=== PATIENT | male | born 1960 | race Caucasian/White ===

== ENCOUNTER 2016-09-22 20:44 | Emergency (ER) | payer OTHER ==
[~2016-09-22 20:44] MED LIST: Sodium Chloride 0.9% 1,000 ML BAG ONE; Sodium Chloride 0.9% 100 ML BAG ONE
[2016-09-22 22:20] LABS: ALT (SGPT) 19 U/L (0-55); AST (SGOT) 16 U/L (5-34); Albumin 3.9 g/dL (3.5-5.0); Alkaline Phosphatase 46 U/L (40-150); Anion Gap 14 mmol/L (10-20); BUN (Urea Nitrogen) 23 mg/dL (8.4-25.7); Bilirubin, Total 0.7 mg/dL (0.2-1.2); Calc. Creatinine Clearance 0 mL/min (70-130); Calcium 9.3 mg/dL (7.8-10.44); Carbon Dioxide 22 mmol/L (22-29); Chloride 98 mmol/L (98-107); Estimated GFR-MDRD 81; Globulin 2.5 g/dL (2.4-3.5); Glucose 110 mg/dL (70-105); Potassium 4.3 mmol/L (3.5-5.1); Protein, Total 6.4 g/dL (6.0-8.3); Sodium 130 mmol/L (136-145)
[2016-09-22 22:21] LABS: %Eosinophils 2.1 % (0.0-10.0); %Lymphocytes 19.9 % (21.0-51.0); %Monocytes 9.3 % (0.0-10.0); %Neutrophils 67.8 % (42.0-75.0); Hemoglobin 15.4 g/dL (14.0-18.0); Mean Corpuscular Hemoglobin 33.1 pg (27.0-31.0); Mean Corpuscular Volume 97.4 fL (80.0-94.0); Mean Platelet Volume 7.7 fL (7.4-10.4); Platelet Count 279 thou/uL (130-400); RBC Distribution Width 11.4 % (11.5-14.5); Red Blood Cell (RBC) Count 4.66 mill/uL (4.70-6.10); White Blood Cell (WBC) Count 11.4 thou/uL (4.8-10.8)
[2016-09-22 22:22] LABS: #Basophils 0.1 thou/uL (0.0-0.2); #Eosinphils 0.2 thou/uL (0.0-0.7); #Lymphocytes 2.3 thou/uL (1.20-3.40); #Monocytes 1.1 thou/uL (0.11-0.59); #Neutrophils 7.7 thou/uL (1.40-6.50); %Basophils 0.9 % (0.0-1.0)
[2016-09-22] MEDS ORDERED: Ondansetron HCl/PF 4 MG/2 ML Vial ONE (22:24)
[2016-09-22] MEDS ORDERED: Dexamethasone 10 MG/ML VIAL ONE (22:24)
[2016-09-22] MEDS ORDERED: cefTRIAXone\\ROCEPHIN 1 GM VIAL ONE (22:24)
[2016-09-22] MEDS ORDERED: Ketorolac Tromethamine 30 MG/ML VIAL ONE (22:24)
[2016-09-22] MEDS ORDERED: methylPREDNISolone Sod Succ/PF 125 MG/2 ML VIAL ONE (22:24)
[2016-09-22 22:49] LABS: Bilirubin Negative (Negative); Blood, Urine Negative (Negative); Clarity Clear (Clear); Glucose, Urine (Dipstick) Negative (Negative); Leukocyte Negative (Negative); Nitrite Negative (Negative); Protein, Urine (Dipstick) Negative (Neg-Trace); pH, Urine 6.5 (5.0-9.0)
--- NOTE | 2016-09-22 23:09 | RAD ---
CHEST PA AND LATERAL: History: 55-year-old male with fever and cough. FINDINGS: Heart size is normal. The lungs are clear of acute process. No confluent pneumonia, overt edema, o r pleural effusion. IMPRESSION: No acute intrathoracic disease. POS: [facility]
== END 2016-09-23 00:05 | disposition home or self-care (01) ==
LOC: MADERS 20:44
DX: J20.9 Acute bronchitis, unspecified (principal); I10 Essential (primary) hypertension; F17.210 Nicotine dependence, cigarettes, uncomplicated
CPT/HCPCS: 71020; 80053; 81003; 83880; 85025; 87040; 87086; 87430; 96361; 96365; 96375; J0696; J1100; J1885; J2405; J2930; J7050

== ENCOUNTER 2020-03-30 12:20 | Emergency (ER) | payer MEDICARE ==
--- NOTE | 2020-03-30 12:46 | RAD ---
EXAM: 3 views of the left wrist HISTORY: Wrist pain COMPARISON: None FINDINGS: 3 views of the left wrist shows no evidence of acute fracture or dislocation. Mild dorsal s oft tissue swelling is seen. No degenerative changes are present. IMPRESSION: No evidence of acute osseous abnormality.
== END 2020-03-30 13:28 | disposition home or self-care (01) ==
LOC: MADERS 12:20
DX: S63.502A Unspecified sprain of left wrist, initial encounter (principal); I10 Essential (primary) hypertension; F43.10 Post-traumatic stress disorder, unspecified; F17.210 Nicotine dependence, cigarettes, uncomplicated; Z79.82 Long term (current) use of aspirin; Z79.899 Other long term (current) drug therapy; W23.0XXA Caught, crushed, jammed, or pinched between moving objects, initial encounter

== ENCOUNTER 2020-09-28 16:11 | Emergency (ER) | payer MEDICARE ==
[2020-09-28] MEDS ORDERED: Norepinephrine 4 MG/4 ML VIAL ONE (19:18)
[2020-09-29 05:58] LABS: SARS-CoV-2 PCR by NAA Not Detected (NotDetected)
== END 2020-09-28 16:44 | disposition home or self-care (01) ==
LOC: MADERS 16:11
DX: Z20.822 Contact with and (suspected) exposure to COVID-19 (principal); I10 Essential (primary) hypertension; F17.210 Nicotine dependence, cigarettes, uncomplicated; Z79.82 Long term (current) use of aspirin; Z79.899 Other long term (current) drug therapy
CPT/HCPCS: 99283; U0003; U0005

== ENCOUNTER 2023-02-24 13:20 | Emergency (ER) | payer MEDICARE ==
[~2023-02-24 13:20] MED LIST changes: +Iopamidol 370 76% 100 ML VIAL ONE; -Sodium Chloride 0.9% 1,000 ML BAG ONE; -Sodium Chloride 0.9% 100 ML BAG ONE
[2023-02-24] MEDS ORDERED: Morphine 2 MG/ML VIAL ONE (14:32)
[2023-02-24 14:42] LABS: #Basophils 0.1 thou/uL (0.0-0.2); #Eosinphils 0.5 thou/uL (0.0-0.7); #Lymphocytes 1.7 thou/uL (1.20-3.40); #Monocytes 1.3 thou/uL (0.11-0.59); #Neutrophils 5.7 thou/uL (1.40-6.50); %Basophils 1.2 % (0.0-1.0); %Eosinophils 5.7 % (0.0-10.0); %Lymphocytes 17.9 % (21.0-51.0); %Monocytes 14.4 % (0.0-10.0); %Neutrophils 60.8 % (42.0-75.0); Hemoglobin 16.4 g/dL (14.0-18.0); Mean Corpuscular HGB CONC 33.5 g/dL (32.0-36.0); Mean Corpuscular Hemoglobin 33.7 pg (27.0-31.0); Mean Corpuscular Volume 100.7 fl (78.0-98.0); Mean Platelet Volume 9.1 fL (7.4-10.4); Platelet Count 319 10x3/uL (130-400); RBC Distribution Width 11.8 % (11.5-14.5); Red Blood Cell (RBC) Count 4.85 mill/uL (4.70-6.10); White Blood Cell (WBC) Count 9.4 10x3/uL (4.8-10.8)
[2023-02-24 14:48] LABS: Prothrombin Time 13.8 sec (12.0-14.7)
[2023-02-24 14:57] LABS: Anion Gap 10 mmol/L (10-20); BUN (Urea Nitrogen) 8 mg/dL (8.4-25.7); CK (CPK) 116 U/L (30-200); Calc. Creatinine Clearance 0 mL/min (70-130); Calcium 9.3 mg/dL (7.8-10.44); Carbon Dioxide 28 mmol/L (23-31); Chloride 102 mmol/L (98-107); Estimated GFR 100; Glucose 117 mg/dL (80-115); Potassium 3.3 mmol/L (3.5-5.1); Sodium 137 mmol/L (136-145)
== END 2023-02-24 18:19 | disposition home or self-care (01) ==
LOC: MADERS 13:20
DX: M79.81 Nontraumatic hematoma of soft tissue (principal); I10 Essential (primary) hypertension; Z79.899 Other long term (current) drug therapy; Z79.82 Long term (current) use of aspirin; F17.210 Nicotine dependence, cigarettes, uncomplicated
CPT/HCPCS: 80048; 82550; 85025; 85610; 96374; J2272; Q9967

== ENCOUNTER 2023-08-28 16:48 | Emergency (ER) | payer MEDICARE | END 2023-08-28 18:05 | disposition home or self-care (01) | LOC: MADERS 16:48 | DX: S92.512A Displaced fracture of proximal phalanx of left lesser toe(s), initial encounter for closed fracture (principal); I10 Essential (primary) hypertension; F17.210 Nicotine dependence, cigarettes, uncomplicated; Z79.899 Other long term (current) drug therapy; W55.12XA Struck by horse, initial encounter ==